=== PATIENT | male | born 1945 | race Caucasian/White ===

== ENCOUNTER 2021-06-13 12:32 | Emergency (ER) | payer MEDICARE, MEDICAID, SELFPAY ==
--- NOTE | 2021-06-13 12:51 | ED_ITS ---
HPI - Skin/Abscess/Foreign Bdy General Chief complaint: Eye Problems Stated complaint: SUDDEN BLINDNESS PER EMS Time Seen by Provider: 06/13/21 12:46 Source: patient and EMS Mode of arrival: EMS Limitations: altered mental status (dementia and schizophrenia) History of Present Illness HPI narrative: 75 yo male from local [facility], hx of dementia/schizophrenia new to senior care as of Friday his dreadlocks were cut off yesterday he is very mobile and they noted yesterday he washed his face over and over to the point of his face becoming red - this morning his face was more red and he told them he couldn't see. RN director notes he only had access to hand soap. EMS notes the patient did get up on his own and walked to the stretcher and put on his own shoes MD complaint: other (red face, red eyes, reports he cannot see) Onset (ago): unknown (not totally sure SNF noted redness yesterday patient stated he couldn't see today) Tetanus up to date: yes Location: head and face (eyes) Severity: severe Relieving factors: none Exacerbating factors: none Context: other (patient repeatedly washing his face yesterday to the point staff had to remove his handsoap) Associated symptoms: other (loss of vision he reported this to staff today unsure when it started) Treatments prior to arrival: none Related Data Previous Rx's Medication Instructions Recorded erythromycin 5 mg/gram (0.5 %) eye 0.5 inch OPHTHALMIC (EYE) TID #3.5 06/13/21 ointment g Allergies Allergy/AdvReac Type Severity Reaction Status Date / Time moxifloxacin Allergy Unknown Verified 06/13/21 12:59 Quinolones Allergy Unknown Verified 06/13/21 12:59 Review of Systems Review of Systems: ROS unable to be obtained due to altered mental status [facility] Past Medical History Source: nursing notes reviewed Medical History (Updated 06/13/21 @ 13:39 by Italia Mike DO) Dementia Hypothyroidism Schizophrenia Social History Social History (Updated 06/13/21 @ 13:00 by Italia Mike DO) Housing: Custodial Patient Tobacco Use Status: Tobacco use Unknown Advance Directives: No Physical Exam Vital Signs: Vital Signs: Last Vital Signs Pulse 49 L 06/13/21 13:08 Resp 18 06/13/21 13:08 BP 133/66 06/13/21 13:08 Pulse Ox 99 06/13/21 13:08 Body Mass Index 23.5 Appearance: Alert. Confused No acute distress. Eyes: Pupils equal, round and reactive to light. cornea are injected and appear cloudy, conjunctive retracted and red, periorbital areaas are red and shiny including above forehead with skin sloughed off on R forehead as well as hair stuck to R part of head, area stops at R zygoma states he can see my fingers. pH 9. Lids are retracted he cannot fully close his lids ENT: Pharynx normal. Neck: Normal inspection. Neck supple. CVS: Normal heart rate and rhythm. Pulses normal. Respiratory: No respiratory distress. Breath sounds normal. Abdomen: Soft and nontender. Skin: Skin warm and dry. Normal skin color. Normal skin turgor. Extremities: No lower extremity edema. No calf ttp Neuro: Confused.. No motor deficit. No sensory deficit. Course Course Course Narrative: recheck pH 7.0 patient reports his vision is normal - he looks so much improved, his skin and his eyes - vastly different CM involved given the concern for corrosive agent tetracaine fluorescein showed no uptake PERRL 3mm MDM - Skin/Abscess/Foreign Bdy MDM Narrative Medical decision making narrative: 75 yo male unreliable historian with red shiny face and reports blindess to both eyes - [facility] states he aggressively washed face yesterday and told them he couldn't see today, he needs decontamination of his face and shana lens of his eyes given pH. Our propellant charge zone assembler has called facility to ask about access to corrosives. Given his face was red yesterday we suspect his injury occured yesterday. Discharge Plan Discharge Clinical Impression: Chemical burn, Skin irritation Acute chemical conjunctivitis Qualifiers: Laterality: bilateral Qualified Code(s): H10.213 - Acute toxic conjunctivitis, bilateral Instructions: Chemical Skin Burn (ED), Blister (ED), Conjunctivitis (ED) Additional Instructions: return to ED for any worsening symptoms or concerns bacitracin daily to forehead erythromycin ointment 0.5 inches to both eyes three times a day for 7 days appointment with eye doctor in 2 days Prescriptions: New erythromycin 5 mg/gram (0.5 %) ointment 0.5 inch ophthalmic (eye) TID Qty: 3.5 RF: 0
[2021-06-13 12:55] VITALS: BP 104/66; PULSE 50
[2021-06-13 13:08] VITALS: BP 133/66; PULSE 49; RESP 18; O2SAT 99; BMI 23.5
[2021-06-13] MEDS: Tetracaine HCl/PF 0.5% Oph Sol 4 ML DROPS 1 DROP EYE-BOTH (13:15)
[2021-06-13] MEDS: Fluorescein Sodium STRIP 1 STRIP EYE-BOTH (13:16)
[2021-06-13] MEDS: Erythromycin Base 0.5% Oph Oin 1 GM TUBE 1 CM EYE-BOTH (14:09)
[2021-06-13] MEDS: Bacitracin Oint 14 GM TUBE 1 APPL TOPICAL (14:09)
== END 2021-06-13 16:11 ==
PROVIDERS: Emergency Provider Emergency Medicine
DX: T26.12XA Burn of cornea and conjunctival sac, left eye, initial encounter (principal); T26.11XA Burn of cornea and conjunctival sac, right eye, initial encounter; F03.90 Unspecified dementia, unspecified severity, without behavioral disturbance, psychotic disturbance, mood disturbance, and anxiety; X08.8XXA Exposure to other specified smoke, fire and flames, initial encounter; Y93.9 Activity, unspecified; Y92.129 Unspecified place in nursing home as the place of occurrence of the external cause; Y99.9 Unspecified external cause status
CPT/HCPCS: 99283